=== PATIENT | female | born 1960 | race Caucasian/White ===

== ENCOUNTER 2021-07-22 07:51 | Outpatient (CLI) | payer BC | END 2021-07-22 07:52 | disposition home or self-care (01) | LOC: ULT 07:51 | PROVIDERS: ATTEND Physician Assistant Medical | DX: K80.20 Calculus of gallbladder without cholecystitis without obstruction (principal); D25.9 Leiomyoma of uterus, unspecified; R93.2 Abnormal findings on diagnostic imaging of liver and biliary tract | CPT/HCPCS: 76705 ==